=== PATIENT | female | born 1975 | race Hispanic/Latino ===

== ENCOUNTER 2022-05-18 06:02 | Emergency (ER) | payer OTHER, SELFPAY ==
[2022-05-18 06:33] LABS: Bilirubin Negative (Negative); Blood, Urine Moderate (Negative); Clarity Slightly Cloudy (Clear); Glucose, Urine (Dipstick) Negative (Negative); Ketone, Urine 15 mg/dL (Negative); Leukocyte Small (Negative); Nitrite Positive (Negative); Protein, Urine (Dipstick) > or equal to 300 mg/dL (Neg-Trace); Urobilinogen 0.2 mg/dL (Less than 2); pH, Urine 5.5 (5.0-9.0)
[2022-05-18 06:43] LABS: Specific Gravity, Urine 1.028 (1.002-1.036)
[2022-05-18 06:48] LABS: Bacteria/HPF 2+ HPF (None Seen); RBC/HPF 21-50 HPF (0-3); Squamous Epithelial 0-3 HPF (0-3)
[2022-05-18 07:01] LABS: #Lymphocytes 0.8 thou/uL (1.20-3.40); #Monocytes 0.3 thou/uL (0.11-0.59); #Neutrophils 8.2 thou/uL (1.40-6.50); %Basophils 0.4 % (0.0-1.0); %Eosinophils 0.3 % (0.0-10.0); %Lymphocytes 8.7 % (21.0-51.0); %Monocytes 2.7 % (0.0-10.0); %Neutrophils 87.9 % (42.0-75.0); Hemoglobin 10.7 g/dL (12.0-16.0); Mean Corpuscular HGB CONC 31.9 g/dL (32.0-36.0); Mean Corpuscular Hemoglobin 28.6 pg (27.0-31.0); Mean Corpuscular Volume 89.6 fl (78.0-98.0); Mean Platelet Volume 7.6 fL (7.4-10.4); Platelet Count 270 10x3/uL (130-400); RBC Distribution Width 12.8 % (11.5-14.5); Red Blood Cell (RBC) Count 3.74 mill/uL (4.20-5.40); White Blood Cell (WBC) Count 9.3 10x3/uL (4.8-10.8)
[2022-05-18 07:18] LABS: BHCG - Serum Negative (NEGATIVE); Pregs Control Bar Appear? YES (CONTROL BAR)
[2022-05-18 07:22] LABS: Anion Gap 16 mmol/L (10-20); BUN (Urea Nitrogen) 22 mg/dL (7.0-18.7); Calc. Creatinine Clearance 0 mL/min (70-130); Calcium 9.1 mg/dL (7.8-10.44); Carbon Dioxide 20 mmol/L (22-29); Chloride 105 mmol/L (98-107); Estimated GFR 63; Glucose 208 mg/dL (70-105); Potassium 4.1 mmol/L (3.5-5.1); Sodium 137 mmol/L (136-145)
[2022-05-18] MEDS ORDERED: Sodium Chloride 0.9% 1,000 ML ONE (07:22)
[2022-05-18] MEDS ORDERED: Morphine 4 MG/ML VIAL ONE (07:22)
[2022-05-18] MEDS ORDERED: Ondansetron PF 4 MG/2 ML Vial ONE (07:23)
[2022-05-18] MEDS ORDERED: Sodium Chloride 0.9% 100 ML ONE (07:23)
[2022-05-18] MEDS ORDERED: cefTRIAXone (ROCEPHIN) 2 GM VIAL ONE (07:23)
== END 2022-05-18 09:00 | disposition home or self-care (01) ==
LOC: NAV ERS 06:02
DX: N23 Unspecified renal colic (principal); D64.9 Anemia, unspecified; K80.20 Calculus of gallbladder without cholecystitis without obstruction; E11.9 Type 2 diabetes mellitus without complications; I10 Essential (primary) hypertension; Z79.84 Long term (current) use of oral hypoglycemic drugs
CPT/HCPCS: 74176; 80048; 81003; 81015; 84703; 85025; 87077; 87086; 87186; 96365; 96375; J0696; J2270; J2405; J3490; J7050

== ENCOUNTER → 2024-01-30 | Day surgery (SDC) | payer OTHER ==
[~2024-01-30] MED LIST: SODIUM FERRIC GLUCONATE 62.5 MG/5 ML ONE; Sodium Chloride 0.9% 100 ML ONE; diphenhydrAMINE 50 MG/ML VIAL ONE
== END ==
LOC: NAV ER/OP 14:28 → EDSTATUS 14:47
PROVIDERS: ATTEND Family Medicine
DX: D50.9 Iron deficiency anemia, unspecified (principal); Z88.0 Allergy status to penicillin
CPT/HCPCS: J1200; J2916